=== PATIENT | male | born 1960 | race American Indian/Alaskan Native ===

== ENCOUNTER 2018-02-10 08:53 | Emergency (ER) | payer MEDICAID ==
[2018-02-10 09:04] VITALS: PULSE 84
--- NOTE | 2018-02-10 09:59 | ED PDOC ---
HPI: Psych/Substance Abuse Time Seen by Provider: 02/10/18 09:15 Chief Complaint (Nursing): Substance Abuse Chief Complaint (Provider): Alcohol use ED Caveat: Intoxicated History Per: EMS History/Exam Limitations: intoxication Additional History Per: EMS Additional Complaint(s): 57yo male, brought to ER by EMS after he was noted to be publicly intoxicated. Patient currently denies alcohol or drug use. He offer no medical complaints and is requesting food. A full HPI and ROS is limited due to the patient's intoxicated state. Past Medical History Reviewed: Historical Data, Nursing Documentation, Vital Signs Vital Signs: Last Vital Signs Temp 97 F L 02/10/18 09:02 Pulse 84 02/10/18 09:02 Resp BP 91/64 L 02/10/18 09:02 Pulse Ox 98 02/10/18 09:02 - Family History Family History: States: No Known Family Hx - Allergies Allergies/Adverse Reactions: Allergies Allergy/AdvReac Type Severity Reaction Status Date / Time erythromycin base Allergy RASH Verified 02/10/18 09:05 [From E-Mycin] Review of Systems Review Of Systems: ROS cannot be obtained secondary to pt's inabilty to answer questions. (intoxication) Physical Exam - Reviewed Nursing Documentation Reviewed: Yes Vital Signs Reviewed: Yes - Physical Exam Appears: Positive for: No Acute Distress Skin: Positive for: Normal Color Eye Exam: Positive for: Normal appearance ENT: Positive for: Other (alcohol on breath) Cardiovascular/Chest: Positive for: Regular Rate, Rhythm Respiratory: Positive for: Normal Breath Sounds Gastrointestinal/Abdominal: Positive for: Soft. Negative for: Tenderness Neurologic/Psych: Positive for: Alert. Negative for: Motor/Sensory Deficits - Laboratory Results Result Diagrams: 02/10/18 10:55 02/10/18 10:55 - ECG O2 Sat by Pulse Oximetry: 98 (RA) Pulse Ox Interpretation: Normal Medical Decision Making Medical Decision Making: Impression: Alcohol intoxication Plan: -- Labs -- UDS -- 1:1 obs 1141 Patient with alcohol level of 119 UDS positive for Opiates, Benzodiazapines, and Methadone Patient medically cleared for crisis evaluation No infection noted in urine. 1145 Patient is increasingly agitated, verbally abusive towards staff. Patient given Ativan 2mg IM and Haldol 5mg IM to relieve agitation. 1442 Patient seen by crisis team and cleared by Dr. Osman with diagnosis of opioid abuse. 165 Patient awake, alert and oriented x 3 with steady gait. Stable for discharge home. Scribe Attestation: Documented by Amparo Zeng, acting as a scribe for Barrington Welch MD. Provider Scribe Attestation: All medical record entries made by the Scribe were at my direction and personally dictated by me. I have reviewed the chart and agree that the record accurately reflects my personal performance of the history, physical exam, medical decision making, and the department course for this patient. I have also personally directed, reviewed, and agree with the discharge instructions and disposition. Disposition - Clinical Impression Clinical Impression: Substance abuse - Patient ED Disposition Is Patient to be Admitted: No Counseled Patient/Family Regarding: Studies Performed, Diagnosis, Need For Followup - Disposition Disposition: Routine/Home Disposition Time: 16:55 Condition: IMPROVED Additional Instructions: follow up with your primary doctor in 1-2 days return to the ED with any worsening or concerning symptoms Instructions: Drug Abuse and Drug Addiction (DC) Forms: [employer] ([employer])
[2018-02-10 11:12] LABS: BASO # 0.1 K/uL (0.0-0.2); BASO % 0.9 % (0.0-2.0); EOS # 0.1 K/uL (0.0-0.7); EOS % 1.7 % (0.0-4.0); HEMOGLOBIN 13.9 g/dL (12.0-18.0); LYMPH # 2.3 K/uL (1.0-4.3); LYMPH % 41.2 % (20.0-40.0); MEAN CORPUSCULAR HEMOGLOBIN 31.8 pg (27.0-31.0); MEAN CORPUSCULAR HGB CONC 33.8 g/dL (33.0-37.0); MEAN PLATELET VOLUME 8.8 fl (7.2-11.7); MONO # 0.4 K/uL (0.0-0.8); MONO % 7.3 % (0.0-10.0); NEUT # 2.7 K/uL (1.8-7.0); NEUT % 48.9 % (50.0-75.0); NRBC % 0.5 % (0.0-0.0); RBC 4.38 Mil/uL (4.40-5.90); RED CELL DISTRIBUTION WIDTH 16.1 % (11.5-14.5); WHITE BLOOD COUNT 5.6 K/uL (4.8-10.8)
[2018-02-10 11:19] LABS: BLOOD UREA NITROGEN 17 mg/dl (9-20); CALCIUM 7.8 mg/dL (8.4-10.2); GFR AFRICAN-AMERICAN > 60; GFR NON-AFRICAN AMERICAN > 60
[2018-02-10 11:22] LABS: BARBITURATES, UR NEGATIVE (NEGATIVE); BENZODIAZEPINES, UR POSITIVE (NEGATIVE); OPIATES, UR POSITIVE (NEGATIVE); PHENCYCLIDINE, UR NEGATIVE (NEGATIVE)
[2018-02-10 11:29] LABS: ACETAMINOPHEN < 10.0 ug/ml (10.0-30.0); SALICYLATE < 1.0 mg/dl
[2018-02-10 17:34] VITALS: BP 115/80; RESP 18; TEMP 98.7
[2018-02-11 12:14] VITALS: O2SAT 98
== END 2018-02-10 17:10 | disposition home or self-care (01) ==
LOC: H.ER 08:53
DX: F19.10 Other psychoactive substance abuse, uncomplicated (principal)
CPT/HCPCS: 80048; 80320; 80324; 80329; 80345; 80346; 80349; 80353; 80358; 80361; 82948; 83992; 85025; 96372; 99284; J1630; J2060